=== PATIENT | female | born 2005 | race Caucasian/White ===

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

== ENCOUNTER 2024-10-29 18:08 | Emergency (ER) | payer BC ==
[~2024-10-29] VITALS: Ht 170.2 cm; Wt 94.6 kg
--- NOTE | 2024-10-29 22:42 | Physician Documentation ---
History of Present Illness Chief Complaint: Flu Symptoms Stated Complaint: N/V/D Time Seen by MD: 22:24 [facility] patient Mode of Arrival: POV HPI 18-year-old female in the ER with complaints of nausea vomiting diarrhea for approximately 48 hours. Patient also endorses fever yesterday. Approximately 7-9 episodes of diarrhea in the past 48 hours and 5 episodes of vomiting. No blood in stool or vomit. 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 Timing/Duration: days Associated Symptoms: fever, diarrhea, nausea, vomiting Medication Reconciliation Allergies: Coded Allergies: No Known Allergies (Unverified , 10/29/24) Scheduled PRN Famotidine (Pepcid AC), 1 TAB PO QDAY PRN PRN for heartburn ONDANSETRON ODT 4mg tablet (Ondansetron Odt), 1 TABLET PO Q6H PRN for nausea/vomiting Past Medical History Past Medical History: No Pertinent History Past Surgical History: noncontributory Alcohol Use: None Drug Use: none Lives with: Family Lives In: Home Occupation: employed Review of Systems All Other Systems at this time: Reviewed and Negative Gastrointestinal: Reports: see HPI Physical Exam Vital Signs: RN Vital Signs have been reviewed: Yes, Temperature: 98.6, Source: Temporal, Heart Rate: 103, Respiratory Rate: 16, BP: 128/86, Pulse Oximetry: 95, Weight: 94.600 Oxygen Flow Rate: 0 General Appearance: WD/WN, no apparent distress Respiratory: lungs clear, no respiratory distress Chest: no accessory muscle use, chest non-tender Cardiovascular: regular rate, rhythm, no edema Gastrointestinal Bowel sounds present, abdominal soft generalized tenderness no focal tenderness distention rigidity or guarding Neurologic: oriented x4, 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 (Zofran 4mg/2ml Vial) (10/29/24 22:35) Normal Saline 1000ml (Sodium Chloride 10 (10/29/24 22:35) Cbc/Diff (10/29/24 22:34) BMP (10/29/24 22:34) Vital Signs 10/29/24 10/29/24 10/29/24 18:13 22:09 22:28 Temp 99.0 98.6 Pulse 140 103 Resp 18 16 16 B/P (MAP) 133/88 128/86 (100) Pulse Ox 99 95 O2 Flow Rate 0 Medical Decision Making Differential Dx:Considerations: Include: Appendicitis, Cholelithasis, Constipation, Gastritis/PUD, Gastroenteritis, Inflammatory BD, Pancreatitis, Other Additional Comments Vital signs upon triage tachycardic at 1:40 a.m. patient's vital signs are reassuring current heart rate 102 dry mucous membranes. Discussed viral versus bacterial etiology including viral gastroenteritis, food-borne illness. Departure Time of Disposition: 23:34 Disposition: HOME / SELF CARE / HOMELESS Impression: Primary Impression: Gastroenteritis Condition: Stable Discharge Instructions: Dehydration, Adult, [id number], Viral Gastroenteritis, Adult, [id number] Additional Instructions: As discussed during our encounter this could be food point illness versus viral gastroenteritis both require supportive care, monitoring hydration closely, and following up with primary care Departure Forms: Excuse form Work or School Excused From: Work Excuse beginning now through the following date: October 30, 2024 May Return but still avoid physical Activity from now until: October 29, 2024 May Return to full physical activity as of: October 29, 2024 Referrals: NO PRIMARY CARE PROVIDER (PCP) Prescriptions Famotidine (Pepcid AC) 20 Mg Tablet 1 TAB PO QDAY PRN PRN for heartburn for 14 Days, #14 TAB 0 Refills Prov: MARYCHUY TATE NP 10/29/24 ONDANSETRON ODT 4mg tablet (ONDANSETRON ODT) 4 Mg Tab.rapdis 1 TABLET PO Q6H PRN for nausea/vomiting, #16 TABLET Prov: MARYCHUY TATE PATTERN CHECKER 10/29/24 Education Educated: Patient, Family Educated regarding: diagnosis, treatment, need for follow up Signature Scribe Signature: No Scribe Attestation: The note accurately reflects work and decisions made by me.Marychuy Tate - PREPARATION SUPERVISOR [employer] 10/29/24 22:41 MARYCHUY TATE NP October 29, 2024 22:41 TRISTA LAMBERT MD October 30, 2024 02:15
[2024-10-29 23:04] LABS: BASOPHILS % (AUTO) 0.2 % (0-1); EOSINOPHILS % (AUTO) 0 % (0-6); HEMATOCRIT 40.1 % (35.0-45.0); LYMPHOCYTES # (AUTO) 0.7 X10'3 (1.1-4.8); LYMPHOCYTES % (AUTO) 7.2 % (21-51); MEAN CORPUSCULAR HEMOGLOBIN 30.4 PG (27.0-31.0); MEAN CORPUSCULAR HGB CONC 34.8 g/dL (33.0-36.5); MEAN CORPUSCULAR VOLUME 87.5 FL (78-98); MEAN PLATELET VOLUME 9.1 FL (7.4-10.4); MONOCYTES # (AUTO) 0.9 X10'3 (0-0.9); MONOCYTES % (AUTO) 9.2 % (2-12); NEUTROPHILS # (AUTO) 8.4 X10'3 (1.8-7.7); NEUTROPHILS % (AUTO) 83.4 % (42-75); PLATELET COUNT 282 X10'3 (140-440); RED BLOOD COUNT 4.59 X10'6 (4.20-5.60); RED CELL DISTRIBUTION WIDTH 12.6 % (11.5-14.5); WHITE BLOOD COUNT 10.1 X10'3 (4.5-11.0)
[2024-10-29 23:24] LABS: ALBUMIN 3.5 G/DL (3.4-5.0); ANION GAP 7 (8-16); BLOOD UREA NITROGEN 18 MG/DL (7-18); BUN/CREATININE RATIO 23.1 (10.0-20.0); CALCIUM 8.7 MG/DL (8.5-10.1); CHLORIDE 103 MMOL/L (99-107); CREATININE 0.78 MG/DL (0.40-0.90); GLUCOSE 109 MG/DL (70-104); SODIUM 139 MMOL/L (135-145); TOTAL CARBON DIOXIDE 28.8 MMOL/L (24-32); eCRCL 113 ML/MIN; eGFR > 90 ML/MIN
[2024-10-29] MEDS: normal saline 1000ML IV soln IVB ONE (23:34)
[2024-10-29] MEDS ORDERED: ONDA-243 PO (23:35)
[2024-10-29] MEDS ORDERED: FAMO20TA47 PO (23:35)
[2024-10-29] MEDS: ondansetron/PF 4mg/2ml inj IV ONE (23:36)
[2024-10-30 01:56] LABS: BILIRUBIN,URINE NEGATIVE (Neg); CLARITY,URINE CLEAR (Clear); COLOR,URINE YELLOW (Yellow); GLUCOSE, URINE NEGATIVE (Neg); KETONES,URINE NEGATIVE (Neg); LEUKOCYTE ESTERASE ,URINE NEGATIVE (Neg); NITRITES, URINE NEGATIVE (Neg); OCCULT BLOOD,URINE NEGATIVE (Neg); PROTEIN,URINE NEGATIVE (Neg); URINE HCG NEGATIVE (NEG); UROBILINOGEN,URINE 0.2 E.U/dL (0.2-1.0)
[2024-10-30 02:12] LABS: UA COLLECTION TYPE NON-SPECIFIED
[2024-10-30 02:30] VITALS: BP 122/77; PULSE 85; RESP 12; TEMP 98.3; O2SAT 96
== END 2024-10-30 02:32 | disposition home or self-care (01) ==
LOC: ER 18:09
DX: K52.9 Noninfective gastroenteritis and colitis, unspecified (principal)
CPT/HCPCS: 36415; 80048; 81003; 81025; 85025; 96361; 96374; 99285; J2405; J7030